=== PATIENT | male | born 1965 | race Caucasian/White ===

== ENCOUNTER 2017-03-31 06:41 | Emergency (ER) | payer MEDICAID ==
[~2017-03-31] VITALS: Ht 175.3 cm; Wt 65.3 kg
[2017-03-31 06:42] VITALS: Ht 175.3 cm; Wt 65.3 kg
[2017-03-31] MEDS ORDERED: ONDANSETRON 4 MG INJ IV STA (07:18)
[2017-03-31] MEDS ORDERED: MECLIZINE 12.5 MG TAB PO ONE (07:30)
--- NOTE | 2017-03-31 07:31 | ERD ---
ER Documentation Chief Complaint Chief Complaint vomiting , dizziness x 1 day h/o vertigo HPI 51-year-old male who presents the emergency department today complaining of vomiting and dizziness for the past 2 days. Patient states that he had vertigo one time in the past but was medication induced and that was 10 years ago. States he takes medication for blood pressure. States he takes Aleve for his back pain. States that his symptoms have improved over the past day. States that he does also have macular degeneration he recently got new glasses and he is unsure if that is what is causing some of the problem. She has not taken any medication. Denies any headache, chest pain, abdominal pain or shortness of breath. ROS All systems reviewed and are negative except as per history of present illness. Medications Home Meds Active Scripts Electrolyte,Oral (Pedialyte) 1,000 Ml Solution, 100 ML PO Q6 Y for VOMITTING, # 1000 ML Prov:JEFF CARRERA PA-C 03/31/17 Ondansetron Hcl* (Zofran*) 4 Mg Tablet, 4 MG PO Q6H for NAUSEA AND/OR VOMITING, #30 TAB Prov:JEFF CARRERA PA-C 03/31/17 Meclizine Hcl* (Antivert*) 12.5 Mg Tab, 25 MG PO Q6H Y for DIZZINESS, #20 TAB Prov:JEFF CARRERA PA-C 03/31/17 Allergies Allergies: Coded Allergies: No Known Allergy (Unverified , 03/31/17) PMhx/Soc Hx Alcohol Use: No Hx Substance Use: No Hx Tobacco Use: Yes Smoking Status: Current every day smoker Physical Exam Vitals Vital Signs Date Time Temp Pulse Resp B/P Pulse Ox O2 Delivery O2 Flow Rate FiO2 03/31/17 06:42 97.8 66 16 169/98 100 Physical Exam Const: NAD Head: Atraumatic Eyes: Normal Conjunctiva. PERRLA, EOM intact ENT: Normal External Ears, Nose and Mouth. Neck: Full range of motion..~ No meningismus. Resp: Clear to auscultation bilaterally Cardio: Regular rate and rhythm, no murmurs Abd: Soft, non tender, non distended. Normal bowel sounds Skin: No petechiae or rashes Back: No midline or flank tenderness Ext: No cyanosis, or edema Neur: Awake and alert. Cranial nerves 2 through 12 intact. No gait ataxia Psych: Normal Mood and Affect Result Diagram: 03/31/1773003/31/17730 Results 24 hrs Laboratory Tests Test 03/31/17 07:31 White Blood Count 8.310^3/ul Red Blood Count 5.1810^6/ul Hemoglobin 15.8g/dl Hematocrit 47.8% Mean Corpuscular Volume 92.3fl Mean Corpuscular Hemoglobin 30.5pg Mean Corpuscular Hemoglobin Concent 33.1g/dl Red Cell Distribution Width 12.2% Platelet Count 49179^3/UL Mean Platelet Volume 8.6fl Neutrophils % 65.4% Lymphocytes % 24.7% Monocytes % 8.0% Eosinophils % 1.3% Basophils % 0.4% Nucleated Red Blood Cells % 0.0/100WBC Neutrophils # 5.410^3/ul Lymphocytes # 2.010^3/ul Monocytes # 0.710^3/ul Eosinophils # 0.110^3/ul Basophils # 0.010^3/ul Nucleated Red Blood Cells # 0.010^3/ul Sodium Level 142mmol/L Potassium Level 3.8mmol/L Chloride Level 104mmol/L Carbon Dioxide Level 31mmol/L Anion Gap 11 Blood Urea Nitrogen 10mg/dl Creatinine 0.74mg/dl Glucose Level 107mg/dl Calcium Level 9.4mg/dl Total Bilirubin 0.7mg/dl Direct Bilirubin 0.00mg/dl Indirect Bilirubin 0.7mg/dl Aspartate Amino Transf (AST/SGOT) 20IU/L Alanine Aminotransferase (ALT/SGPT) 27IU/L Alkaline Phosphatase 77IU/L Total Protein 7.4g/dl Albumin 4.2g/dl Globulin 3.20g/dl Albumin/Globulin Ratio 1.31 Current Medications Medications (Trade) Dose Ordered Sig/[place] Route PRN Reason Start Time Stop Time Status Last Admin Dose Admin Ondansetron HCl (Zofran Inj) 4 mg ONCE STAT IV 03/31/17 07:18 03/31/17 07:19 DC 03/31/17 07:42 Meclizine HCl (Antivert) 25 mg ONCE ONCE PO 03/31/17 07:30 03/31/17 07:31 DC 03/31/17 07:42 Procedures/MDM This is a 51-year-old male who presents the emergency department today complaining of dizziness and vomiting for the past 2 days. Laboratory workup I did obtain patient's age I did obtain laboratory workup as well as an EKG Laboratory workup elevated white blood cell count. He is not anemic. Platelets are within normal limits. Electrolytes are within normal limits. Glucose is within normal limits. Liver enzymes are within normal limits. EKG read and interpreted by Dr. Medina. Rate [address] elevation. No QT prolongation. Normal sinus rhythm. Low suspicion for acute TX, PE, pericarditis. Patient was given meclizine and Zofran here in the emergency department and reported feeling better. Patient had indicated that he started feeling better this morning and his symptoms had improved from 2 days ago. Patient has no focal neurologic deficits and no gait ataxia and I do not feel that he requires a head CT scan at this time. Low suspicion for acute hemorrhage, mass, abscess, meningitis When I went back to check on the patient he was sitting up eating a granola bar. Patient has dizziness of uncertain etiology however low suspicion for cardiac abnormality as a cause of dizziness, anemia, sepsis or severe acute bacterial infection. May also be caused by BPV or his new prescription for eyeglasses. Patient was instructed to follow-up with his ophthalmology specialist.. Patient will be given a prescription for meclizine Pedialyte and Zofran for home. At this time the patient is stable for discharge and outpatient management. Patient should follow up with their PCP in the next 1-2 days. They may return to the emergency department sooner for any persistent or worsening of symptoms. Patient understood and agreed with the plan. Discussed the patient with Dr. Medina and she is in agreement with the plan Departure Diagnosis: Primary Impression: Dizziness Condition: JEFF Mota PA-C Mar 31, 2017 07:31
[2017-03-31 07:48] LABS: BASOPHILS % 0.4 % (0.0-2.0); EOSINOPHILS # 0.1 10^3/ul (0.0-0.5); EOSINOPHILS % 1.3 % (0.0-7.0); HEMATOCRIT 47.8 % (42.0-52.0); HEMOGLOBIN 15.8 g/dl (14.0-18.0); LYMPHOCYTES % 24.7 % (15.0-51.0); MEAN CORPUSCULAR HEMOGLOBIN 30.5 pg (29.0-33.0); MEAN CORPUSCULAR HGB CONC 33.1 g/dl (32.0-37.0); MEAN CORPUSCULAR VOLUME 92.3 fl (82.0-101.0); MEAN PLATELET VOLUME 8.6 fl (7.4-10.4); MONOCYTE # 0.7 10^3/ul (0.3-0.9); NEUTROPHIL # 5.4 10^3/ul (1.6-7.5); NEUTROPHILS % 65.4 % (39.0-77.0); PLATELET COUNT 286 10^3/UL (140-415); RED BLOOD COUNT 5.18 10^6/ul (4.70-6.10); RED CELL DISTRIBUTION WIDTH 12.2 % (11.5-14.5); WHITE BLOOD COUNT 8.3 10^3/ul (4.8-10.8)
[2017-03-31 08:08] LABS: ALBUMIN 4.2 g/dl (3.3-4.9); ALBUMIN/GLOBULIN RATIO 1.31; BILIRUBIN,INDIRECT 0.7 mg/dl (0-1.1); BILIRUBIN,TOTAL 0.7 mg/dl (0.2-1.3); CALCIUM 9.4 mg/dl (8.4-10.2); CREATININE 0.74 mg/dl (0.61-1.24); POTASSIUM 3.8 mmol/L (3.5-5.1); TOTAL PROTEIN 7.4 g/dl (6.1-8.1)
[2017-03-31] MEDS ORDERED: MECL12.574 PO (09:09)
[2017-03-31] MEDS ORDERED: ONDA4TAB8 PO (09:09)
[2017-03-31] MEDS ORDERED: ELEC100080 PO (09:10)
[2017-03-31 09:27] VITALS: BP 135/71; PULSE 71; RESP 16; TEMP 98.7
== END 2017-03-31 09:29 | disposition home or self-care (01) ==
LOC: FTE 06:41
DX: R42 Dizziness and giddiness (principal); F17.210 Nicotine dependence, cigarettes, uncomplicated; R11.10 Vomiting, unspecified
CPT/HCPCS: 36415; 80053; 85025; 93005; 96374; J2405; Z7502; Z7610